=== PATIENT | male | born 1975 | race Caucasian/White ===

== ENCOUNTER 2017-02-11 23:39 | Inpatient (IN) | payer OTHER, MEDICARE ==
[~2017-02-11] VITALS: Ht 170.2 cm; Wt 57.3 kg
[~2017-02-11 23:39] MED LIST: ACETAMINOPHEN325 M2 PO; ACTIVASE100 MG/VIA IV; ASPIR 8181 M1 PO; BACITRACIN28.4 G1 TP; BACTRIM DS TABL1 TAB; BACTRIM DS1 TA1 PO; BACTRIM DS1 TAB PO; CEFAZOLIN1 GM/50 ML IV; CEFAZOLIN2000 MG/50 IV; CENTRUM MULTIV1 EACH PO; CIPRO500 MG PO; COMPAZINE10 MG PO; CUBICIN IV; CULTURELLE1 CA1 PO; CYCLOBENZAPRINE5 M1 PO; DAPTOMYCIN; DAPTOMYCIN IV; DIFLUCAN100 MG PO; ENTYVIO300 MG IV; FLAGYL500 MG PO; FOLIC ACID1 M1 PO; HUMIRA20 MG/0.4 SQ; HUMIRA40 MG/0.2 SC; HUMIRA40 MG/0.3 PO; HUMIRA40 MG/0.8 SQ; IMODIUM MULTI-1 EAC1 PO; IMODIUM2 MG PO; INTRALIPID250 ML IV; LEVAQUIN750 M1 PO; LIPOSYN250 ML IV; LOMOTIL1 TAB PO; LOPERAMIDE2 M3 PO; MEGACE ES625 MG/5 M PO; MEGESTROL ACETA20 M1 PO; MERREM IV; MILK OF MA400 MG/5 M PO; MONOJECT PREFIL10 M1 IV; MULTIVITAMINS1 EAC6 PO; NORCO 10-325 T1 EACH PO; NORCO 5-325 TA1 EACH PO; NORCO 5/325 TAB1 TAB PO; NORCO 5/3251 TAB PO; NORTRIPTYLINE H50 M1 PO; OMEPRAZOLE20 M1 PO; OMEPRAZOLE20 M4 PO; ONDANSETRON ODT8 M1 PO; PENTASA500 MG PO; PEPCID20 M1 PO; PERCOCET 5/3251 TAB PO; PREDNISONE1 M1 PO; PREDNISONE10 M1 PO; PREDNISONE20 M1 PO; PREDNISONE20 MG PO; PREDNISONE5 M1 PO; PREDNISONE5 MG PO; PROZAC10 MG PO; RASUVO 3030 MG/0.6; REMICADE100 MG/VIA IV; SANDOSTATI50 MCG/1 M IJ; SANDOSTATIN20 MG/KIT IM; SENNA PLUS TAB1 EACH PO; SODIUM CHLORIDE IV; SODIUM CHLORIDE10 M1 IV; SODIUM CHLORIDE50 M1 IV; TPN (ADULT)1 EA IV; TPN ELECTROLYTE20 M2; TPN ELECTROLYTE20 M2 IV; TPN IV; TYLENOL325 M2 PO; TYLENOL325 MG PO; TYLENOL500 MG PO; VANCO 1 GR1 GM/250 M IV; VANCOCIN HCL250 MG PO; VANCOMYCIN1 GM/VIA2 IV; VITAMIN A10000 UNI2 PO; VITAMIN A8000 UNI1 PO; VITAMIN D1000 UNI3 PO; VITAMIN E400 UNI7 PO; ZANTAC150 M1 PO; ZOFRAN ODT8 MG/TAB PO; ZOFRAN4 MG PO; ZYVOX600 MG IV; [UNRECOGNIZED DRUG - NUTRITION] IV; [UNRECOGNIZED DRUG - OTHER] IV; [UNRECOGNIZED DRUG - REMARK] PO
--- NOTE | 2017-02-12 02:29 | NUR ---
VIRTUAL CARE NOTE: CALLED FOR TPN ORDERS FROM [facility]. THEY WERE NOT ABLE TO FIND ANYTHING. THEY ARE THINKING WE WILL NEED TO CALL [facility]. WILL HAVE DAY VN CALL.
[2017-02-12 10:21] LABS: BASO % 2.8 % (0-2); BASO ABSOLUTE COUNT 0.5 tho/cmm (0.0-0.2); EOS % 7.2 % (0-7); EOSINOPHIL ABSOLUTE COUNT 1.3 tho/cmm (0.0-0.7); HCT-HEMATOCRIT 32.2 % (36.0-53.5); HGB-HEMOGLOBIN 10.7 gm/dl (13.5-17.0); IMMATURE GRANULOCYTES ABSOLUTE 0.03 tho/cmm (0-0.03); IMMATURE GRANULOCYTES PERCENT 0.2 % (0-0.3); LYMPH % 6.5 % (20-45); LYMPH ABSOLUTE COUNT 1.2 tho/cmm (0.8-4.5); MCH (MEAN CORPUSCULAR HGB) 29.2 pg (28.0-32.0); MCHC MEAN CORPUSCULAR HGB CONC 33.2 % (32.0-36.0); MEAN PLATELET VOLUME 9.5 cmc (9.4-12.4); MONO % 21.2 % (0-12); MONOCYTE ABSOLUTE COUNT 3.8 tho/cmm (0.0-1.2); NEUTROPHIL ABSOLUTE COUNT 11.1 tho/cmm (1.6-8.0); NEUTROPHIL-AUTOMATED 11.1 tho/cmm (1.6-8.0); NEUTROPHILS % 62.1 % (40-80); PLATELET COUNT 669 tho/cmm (150-450); RED BLOOD COUNT 3.66 mil/cmm (4.40-5.70); WHITE BLOOD COUNT 17.8 tho/cmm (4.0-10.0)
[2017-02-12 10:42] LABS: ALB/GLOB RATIO 0.5 (0.8-2.0); ALBUMIN 2.6 g/dl (3.5-5.0); ALKALINE PHOSPHATASE 118 U/L (33-138); ALT/SGPT 33 U/L (12-78); AMYLASE 28 U/L (20-90); ANION GAP 12 mmol/L (0-20); AST/SGOT 25 U/L (10-40); BILIRUBIN,TOTAL 0.3 mg/dl (0.0-1.5); BLOOD UREA NITROGEN 9 mg/dl (6-24); C-REACTIVE PROTEIN 1.9 mg/dl (0-0.9); CALCIUM 7.9 mg/dl (8.5-10.5); CARBON DIOXIDE-VENOUS 25 mmol/L (22-32); CHLORIDE 107 mmol/l (96-110); CREATININE 0.54 mg/dl (0.60-1.30); GLUCOSE 76 mg/dL (70-110); LIPASE 103 U/L (73-393); MAGNESIUM 1.8 mg/dl (1.8-2.6); PHOSPHOROUS 2.8 mg/dl (2.5-4.9); POTASSIUM 3.7 mmol/L (3.7-5.1); SODIUM 140 mmol/L (135-145); eGFR VALUE FOR BLACK >90 mL/Min
[2017-02-12 10:57] LABS: PROCALCITONIN 0.07 ng/ml (0.05-0.09)
--- NOTE | 2017-02-12 21:20 | NUR ---
VIRTUAL CARE NOTE: PT. IS IN BED, HAS HAD FIVE BM'S TODAY, PAIN IS TOLERABLE AND HAS WALKED 3-4 TIMES TODAY. PRAISE GIVEN. EDUCATION REVIEWED REGARDING TPN AND LIPIDS AND HAVING A I.J. PT. HAS BEEN ON TPN AND LIPIDS FOR QUITE SOME TIME AND HAS KNOWLEDGE OF THESE THINGS. DENIES FURTHER NEEDS AT THIS TIME. INSTRUCTED TO CALL FOR FUTURE NEEDS. STATES VERBAL AGREEMENT.
[2017-02-13 06:17] LABS: HCT-HEMATOCRIT 32.1 % (36.0-53.5); HGB-HEMOGLOBIN 10.7 gm/dl (13.5-17.0); IMMATURE GRANULOCYTES PERCENT 0.1 % (0-0.3); LYMPH % 8.4 % (20-45); MCH (MEAN CORPUSCULAR HGB) 29.2 pg (28.0-32.0); MCHC MEAN CORPUSCULAR HGB CONC 33.3 % (32.0-36.0); MCV (MEAN CELL VOLUME) 87.7 fl (82.0-96.0); MEAN PLATELET VOLUME 9.2 cmc (9.4-12.4); MONO % 21.4 % (0-12); NEUTROPHIL-AUTOMATED 7.6 tho/cmm (1.6-8.0); NEUTROPHILS % 56.4 % (40-80); PLATELET COUNT 662 tho/cmm (150-450); RED BLOOD COUNT 3.66 mil/cmm (4.40-5.70); RED CELL DISTRIBUTION WIDTH 14.1 % (12.4-16.4); WHITE BLOOD COUNT 13.4 tho/cmm (4.0-10.0)
[2017-02-13 06:25] LABS: BASO % 3.7 % (0-2); BASO ABSOLUTE COUNT 0.5 tho/cmm (0.0-0.2); EOSINOPHIL ABSOLUTE COUNT 1.4 tho/cmm (0.0-0.7); IMMATURE GRANULOCYTES ABSOLUTE 0.02 tho/cmm (0-0.03); LYMPH ABSOLUTE COUNT 1.1 tho/cmm (0.8-4.5); MONOCYTE ABSOLUTE COUNT 2.9 tho/cmm (0.0-1.2); NEUTROPHIL ABSOLUTE COUNT 7.6 tho/cmm (1.6-8.0)
[2017-02-13 06:41] LABS: ALB/GLOB RATIO 0.5 (0.8-2.0); ALBUMIN 2.5 g/dl (3.5-5.0); ALKALINE PHOSPHATASE 106 U/L (33-138); ALT/SGPT 28 U/L (12-78); ANION GAP 10 mmol/L (0-20); AST/SGOT 13 U/L (10-40); BLOOD UREA NITROGEN 12 mg/dl (6-24); CALCIUM 7.9 mg/dl (8.5-10.5); CARBON DIOXIDE-VENOUS 28 mmol/L (22-32); CHLORIDE 106 mmol/l (96-110); CREATININE 0.49 mg/dl (0.60-1.30); GLUCOSE 87 mg/dL (70-110); MAGNESIUM 1.9 mg/dl (1.8-2.6); PHOSPHOROUS 3.5 mg/dl (2.5-4.9); POTASSIUM 3.9 mmol/L (3.7-5.1); PREALBUMIN 13.3 mg/dl (20.0-40.0); SODIUM 140 mmol/L (135-145); eGFR VALUE FOR BLACK >90 mL/Min
[2017-02-13 06:50] LABS: BILIRUBIN,TOTAL 0.1 mg/dl (0.0-1.5)
[2017-02-13] MEDS ORDERED: LEXAPRO10 M2 PO (16:35)
[2017-02-13] MEDS ORDERED: LIPID (16:37)
[2017-02-13] MEDS ORDERED: TPN (16:37)
--- NOTE | 2017-02-13 17:14 | NUR ---
VIRTUAL CARE NOTE: PT DRESSED READY FOR DISCHARGE TEACHING. INFORMATION GIVEN TO PT, PT WILL RESUME WOUND VAC AND TPN THERAPY AT HOME. C SERVICE WILL RESUME BEFORE. PT DENIES ANY QUESTIONS OR CONCERNS. INFORMED FLOOR NURSE DISCHARGE TEACHING DONE.
== END 2017-02-13 17:35 | disposition home health service (06) | DRG 389 ==
LOC: 5WE 23:39 → 5WD 23:41
PROVIDERS: Family Medicine; Registered Nurse; ADMIT Internal Medicine
DX: K56.7 Ileus, unspecified (principal); E46 Unspecified protein-calorie malnutrition; D69.6 Thrombocytopenia, unspecified; K86.2 Cyst of pancreas; K91.2 Postsurgical malabsorption, not elsewhere classified; K31.84 Gastroparesis; K83.8 Other specified diseases of biliary tract; K50.919 Crohn's disease, unspecified, with unspecified complications; D50.9 Iron deficiency anemia, unspecified; F32.9 Major depressive disorder, single episode, unspecified; M06.9 Rheumatoid arthritis, unspecified; M81.0 Age-related osteoporosis without current pathological fracture; S31.109A Unspecified open wound of abdominal wall, unspecified quadrant without penetration into peritoneal cavity, initial encounter; Z79.52 Long term (current) use of systemic steroids
CPT/HCPCS: C1751; J1170; J1200; J2405; J3010; J7030; J7512